=== PATIENT | male | born 1975 | race Caucasian/White ===

== ENCOUNTER 2024-02-20 20:56 | Emergency (ER) | payer OTHER, SELFPAY ==
[2024-02-20 21:12] VITALS: BP 143/91; PULSE 55; RESP 16; TEMP 36.2; O2SAT 99; BMI 34.7
--- NOTE | 2024-02-21 00:02 | ED_ITS ---
HPI - Skin/Abscess/Foreign Bdy General Chief complaint: Skin/Abscess/Foreign Body Stated complaint: wound opening up Time Seen by Provider: 02/20/24 23:54 Source: patient Mode of arrival: Ambulatory History of Present Illness HPI narrative: Patient was a 48-year-old male here for evaluation of a wound dehiscence in his right hand. He recently underwent a carpal tunnel release and trigger finger release. Stitches were removed within the past day or so. He states that during the exercises that he was supposed to perform the wound on the palm of his right hand has opened up. Related Data Allergies Allergy/AdvReac Type Severity Reaction Status Date / Time Nephrotoxic drugs Allergy Patient Uncoded 02/20/24 21:11 has 1 kidney Review of Systems Musculoskeletal Musculoskeletal: Reports system reviewed and no additional complaints, except as documented Integumentary/Breasts Skin/Breast: Reports system reviewed and no additional complaints, except as documented Patient History Social History Smoking Status: Never smoker Smoking Status: Never smoker Exam Initial Vital Signs Initial Vital Signs: Vital Signs Temperature 97.1 F L 02/20/24 21:12 Pulse Rate 55 L 02/20/24 21:12 Respiratory Rate 16 02/20/24 21:12 Blood Pressure 143/91 H 02/20/24 21:12 Pulse Oximetry 99 02/20/24 21:12 Oxygen Delivery Method Room Air 02/20/24 21:12 Skin Other: The carpal tunnel release wound appears well. There is a curvilinear wound located on the palm of the hand consistent with his trigger finger release. There was approximately 4 cm area of this that has open. No active bleeding. Course Vital Signs Vital signs: Vital Signs - 8 hr 02/20/24 21:12 Temperature 97.1 F L Pulse Rate 55 L Respiratory Rate 16 Blood Pressure 143/91 H Pulse Oximetry 99 Oxygen Delivery Method Room Air MDM - Skin/Abscess/Foreign Bdy MDM Narrative Medical decision making narrative: Unfortunately we are unable to stitch the wound back into place given the nature of the wound and how long it has been exposed. No indication for radiologic studies. There was no signs of any infection. The wound was cleaned. Steri- Strips were placed over the area. He was placed in a Burton bandage to provide soft tissue rest and he was advised to contact the operative surgeon on Thursday when the office is open to discuss further evaluation and treatment. Discharge Plan Departure Patient Disposition: Home Clinical Impression: Dehiscence of wound Instructions: DI for Wound Dehiscence Activity Restrictions/Additional Instructions: I do recommend that you contact the operative surgeon on Thursday for a follow-up. Continue to take any medications as directed. Return to the emergency department for new symptoms. Stand Alone Forms: Patient Portal/API/Survey
== END 2024-02-21 00:51 | disposition home or self-care (01) ==
PROVIDERS: Emergency Provider Emergency Medicine
DX: T81.31XA Disruption of external operation (surgical) wound, not elsewhere classified, initial encounter (principal); Y83.8 Other surgical procedures as the cause of abnormal reaction of the patient, or of later complication, without mention of misadventure at the time of the procedure
CPT/HCPCS: 99281